=== PATIENT | female | born 1945 ===

== ENCOUNTER 2017-07-31 08:14 | Day surgery (SDC) | payer MEDICARE, OTHER ==
[2017-07-31 08:57] VITALS: BMI 26.5
[2017-07-31] MEDS ORDERED: Propofol 10 mg/ml Inj (20 ML) ONE (10:23)
[2017-07-31 13:27] VITALS: TEMP 98.7; O2SAT 100
[2017-07-31 13:30] VITALS: BP 160/70; PULSE 75; RESP 13
== END 2017-07-31 11:50 | disposition home or self-care (01) ==
LOC: C.ENDO 08:14
PROVIDERS: ATTEND Internal Medicine Gastroenterology
DX: K29.50 Unspecified chronic gastritis without bleeding (principal); R13.10 Dysphagia, unspecified; K21.0 Gastro-esophageal reflux disease with esophagitis; K22.70 Barrett's esophagus without dysplasia
CPT/HCPCS: 43239; 82948; 88305; J2001; J2704